=== PATIENT | female | born 1995 | race Caucasian/White ===

== ENCOUNTER 2016-10-24 23:15 | Emergency (ER) | payer MEDICAID ==
[2016-10-24 23:34] VITALS: RESP 16; TEMP 98.2; O2SAT 97
[2016-10-25 00:28] LABS: COLOR YELLOW; LEUKOCYTE ESTERASE,URINE NEGATIVE (NEGATIVE); NITRITE,URINE NEGATIVE (NEGATIVE)
[2016-10-25] MEDS ORDERED: KETOROLAC 30 MG/1 ML SDV IVP ONE (01:06)
--- NOTE | 2016-10-25 01:10 | EDPHY ---
H & P Stated Complaint: LLQ abd pain Time Seen by Provider: 10/25/16 00:50 HPI/ROS: HPI The patient presents with left lower quadrant pain which began at about 9:00 p.m. tonight while she was at home standing. The pain became gradually worse and now is described as a sharp, constant sensation which does not radiate. It is moderate in severity. She has a history of a similar pain about 1 year ago that improved on its own. Her last menstrual period was 1 week ago. She does not have any vaginal bleeding or discharge. She feels somewhat lightheaded though denies any other complaints.. REVIEW OF SYSTEMS Constitutional: No fever, no chills. Eyes: No discharge. ENT: No sore throat. Cardiovascular: No chest pain, no palpitations. Respiratory: No cough, no shortness of breath. Gastrointestinal: See HPI Genitourinary: No hematuria. Musculoskeletal: No back pain. Skin: No rashes. Neurological: No headache. PMHx: Bipolar disorder, asthma Soc Hx: Lives at home with her family PHYSICAL General Appearance: Alert, no distress Eyes: Pupils equal and round no pallor or injection ENT, Mouth: Mucous membranes moist Respiratory: There are no retractions, lungs are clear to auscultation Cardiovascular: Regular rate and rhythm Gastrointestinal: Abdomen is soft with tenderness in the left lower quadrant without any rebound or guarding,, no masses, bowel sounds normal Neurological: A&O, moves all extremities Skin: Warm and dry, no rashes Musculoskeletal: Neck is supple non tender Extremities: symmetrical, full range of motion Psychiatric: Patient is oriented X 3, there is no agitation Source: Patient Exam Limitations: No limitations - Personal History LMP (Females 10-55): 1-7 Days Ago Current Tetanus/Diphtheria Vaccine: Yes Current Tetanus Diphtheria and Acellular Pertussis (TDAP): Yes Tetanus Vaccine Date: < 10 years - Medical/Surgical History Hx Asthma: Yes Hx Chronic Respiratory Disease: No Hx Diabetes: No Hx Cardiac Disease: No Hx Renal Disease: No Hx Cirrhosis: No Hx Alcoholism: No Hx HIV/AIDS: No Hx Splenectomy or Spleen Trauma: No Other PMH: Bipolar/depression, asthma, PTSD - Social History Smoking Status: Never smoked Constitutional: Initial Vital Signs Temperature (C) 36.8 C 10/24/16 23:31 Heart Rate 100 10/24/16 23:31 Respiratory Rate 16 10/24/16 23:31 Blood Pressure 129/86 H 10/24/16 23:31 O2 Sat (%) 97 10/24/16 23:31 O2 Delivery Mode Room Air Allergies/Adverse Reactions: No Known Allergies Allergy (Verified 10/27/15 23:14) Home Medications: Medication Instructions Recorded traZODone [traZODONE 100MG (RX)] 11/04/12 Albuterol Sulfate [Albuterol 1 gm IH Q4 01/27/14 Sulfate Hfa] Control Pill 01/27/14 Flovent 110 MCG Hfa MDI (RX) 10/26/15 Latuda 10/24/16 Lexapro 10/24/16 Vyvanse 10/24/16 Medical Decision Making - Diagnostics Imaging Results: Pelvic ultrasound is normal, discussed with Dr. Strauss of Radiology Differential Diagnosis: This is a 21-year-old female with history of asthma, bipolar disorder who presents from home with left lower quadrant abdominal pain which has been constant since 9:00 p.m. tonight. Differential diagnosis includes ruptured ovarian cyst, ovarian torsion, UTI, less likely diverticulitis, musculoskeletal pain. Plan for pain control, basic labs. Patient's pain improved while in the emergency room. Labs were checked and were unremarkable. Her pelvic ultrasound was also unremarkable. I am not concerned about any serious intra-abdominal pathology at this time. The patient will be discharged, we have discussed return precautions. - Data Points Laboratory Results: Laboratory Results 10/24/16 00:50 10/24/16 00:50 10/24/16 10/24/16 10/24/16 23:40 00:50 00:50 WBC RBC Hgb Hct MCV MCH MCHC RDW Plt Count MPV Neut % (Auto) Lymph % (Auto) [place] % (Auto) Eos % (Auto) Baso % (Auto) Nucleat RBC Rel Count Absolute Neuts (auto) Absolute Lymphs (auto) Absolute Monos (auto) Absolute Eos (auto) Absolute Basos (auto) Absolute Nucleated RBC Immature Gran % Immature Gran # Sodium 138 mEq/L mEq/L (134-144) Potassium 4.0 mEq/L mEq/L (3.5-5.2) Chloride 105 mEq/L mEq/L (97-110) Carbon Dioxide 21 mEq/l L mEq/l (22-31) Anion Gap 12 mEq/L mEq/L (8-16) BUN 10 mg/dL mg/dL (7-23) Creatinine 0.6 mg/dL mg/dL (0.6-1.0) Estimated GFR > 60 Glucose 88 mg/dL mg/dL (70-100) Calcium 10.7 mg/dL H mg/dL (8.5-10.4) Phosphorus 4.2 mg/dL mg/dL (2.5-4.5) Beta HCG, Qual NEGATIVE Urine Color YELLOW Urine Appearance HAZY Urine pH 7.0 (5.0-7.5) Ur Specific Walker 1.023 (1.002-1.030) Urine Protein NEGATIVE (NEGATIVE) Urine Ketones NEGATIVE (NEGATIVE) Urine Blood NEGATIVE (NEGATIVE) Urine Nitrate NEGATIVE (NEGATIVE) Urine Bilirubin NEGATIVE (NEGATIVE) Urine Urobilinogen NEGATIVE EU EU (0.2-1.0) Ur Leukocyte Esterase NEGATIVE (NEGATIVE) Urine Glucose NEGATIVE (NEGATIVE) 10/24/16 00:50 WBC 8.74 10^3/uL 10^3/uL (3.80-9.50) RBC 4.68 10^6/uL 10^6/uL (4.18-5.33) Hgb 13.9 g/dL g/dL (12.6-16.3) Hct 41.1 % % (38.0-47.0) MCV 87.8 fL fL (81.5-99.8) MCH 29.7 pg pg (27.9-34.1) MCHC 33.8 g/dL g/dL (32.4-36.7) RDW 12.8 % % (11.5-15.2) Plt Count 303 10^3/uL 10^3/uL (150-400) MPV 9.8 fL fL (8.7-11.7) Neut % (Auto) 44.5 % % (39.3-74.2) Lymph % (Auto) 41.8 % % (15.0-45.0) [place] % (Auto) 8.9 % % (4.5-13.0) Eos % (Auto) 3.5 % % (0.6-7.6) Baso % (Auto) 0.6 % % (0.3-1.7) Nucleat RBC Rel Count 0.0 % % (0.0-0.2) Absolute Neuts (auto) 3.89 10^3/uL 10^3/uL (1.70-6.50) Absolute Lymphs (auto) 3.65 10^3/uL H 10^3/uL (1.00-3.00) Absolute Monos (auto) 0.78 10^3/uL 10^3/uL (0.30-0.80) Absolute Eos (auto) 0.31 10^3/uL 10^3/uL (0.03-0.40) Absolute Basos (auto) 0.05 10^3/uL 10^3/uL (0.02-0.10) Absolute Nucleated RBC 0.00 10^3/uL 10^3/uL (0-0.01) Immature Gran % 0.7 % % (0.0-1.1) Immature Gran # 0.06 10^3/uL 10^3/uL (0.00-0.10) Sodium Potassium Chloride Carbon Dioxide Anion Gap BUN Creatinine Estimated GFR Glucose Calcium Phosphorus Beta HCG, Qual Urine Color Urine Appearance Urine pH Ur Specific Walker Urine Protein Urine Ketones Urine Blood Urine Nitrate Urine Bilirubin Urine Urobilinogen Ur Leukocyte Esterase Urine Glucose Medications Given: Discontinued Medications Ketorolac Tromethamine (Toradol) 15 mg IVP EDNOW ONE Stop: 10/25/16 01:07 Last Admin: 10/25/16 01:15 Dose: 15 mg Departure - Departure Disposition: Home, Routine, Self-Care Clinical Impression: Abdominal pain Qualifiers: Abdominal location: left lower quadrant Qualified Code(s): R10.32 - Left lower quadrant pain Condition: Good Instructions: Acute Abdominal Pain (ED) Additional Instructions: Please return to the emergency room if your worse in any way. You can take Tylenol or ibuprofen as needed for pain. Referrals: Shaye Hall MD [Primary Care Provider] - As per Instructions
[2016-10-25 01:14] LABS: % IMMATURE GRANULYOCYTES 0.7 % (0.0-1.1); ABSOLUTE IMMATURE GRANULOCYTES 0.06 10^3/uL (0.00-0.10); ADD DIFF? NO; ADD MORPH? NO; ADD SCAN? NO; ATYPICAL LYMPHOCYTE FLAG 20 (0-99); FRAGMENT RBC FLAG 0 (0-99); HEMATOCRIT 41.1 % (38.0-47.0); HEMOGLOBIN 13.9 g/dL (12.6-16.3); LEFT SHIFT FLG 0 (0-99); LIPEMIA HEMOLYSIS FLAG 90 (0-99); MEAN CELL HEMOGLOBIN 29.7 pg (27.9-34.1); MEAN CELL HEMOGLOBIN CONCENTR. 33.8 g/dL (32.4-36.7); MEAN CELL VOLUME 87.8 fL (81.5-99.8); MEAN PLATELET VOLUME 9.8 fL (8.7-11.7); PLATELET CLUMPS FLAG 0 (0-99); PLATELET COUNT 303 10^3/uL (150-400); RED BLOOD CELL COUNT 4.68 10^6/uL (4.18-5.33); RED CELL DISTRIBUTION WIDTH 12.8 % (11.5-15.2)
[2016-10-25 01:40] LABS: ANION GAP 12 mEq/L (8-16); CARBON DIOXIDE 21 mEq/l (22-31); CHLORIDE 105 mEq/L (97-110); CREATININE 0.6 mg/dL (0.6-1.0); GLOMERULAR FILTRATION RATE > 60; GLUCOSE 88 mg/dL (70-100); SODIUM 138 mEq/L (134-144)
[2016-10-25 02:03] LABS: CALCIUM 10.7 mg/dL (8.5-10.4)
[2016-10-25 02:07] VITALS: BP 126/55; PULSE 71
== END 2016-10-25 02:07 | disposition home or self-care (01) ==
DX: R10.32 Left lower quadrant pain (principal); J45.909 Unspecified asthma, uncomplicated
CPT/HCPCS: 96374; J1885

== ENCOUNTER 2017-01-05 19:20 | Emergency (ER) | payer MEDICAID ==
[2017-01-05] MEDS ORDERED: NS 1,000 ML IV ONE ×2 (19:40→20:44)
--- NOTE | 2017-01-05 19:43 | EDPHY ---
H & P Smoking Status: Never smoked Time Seen by Provider: 01/05/17 19:29 HPI/ROS: 103AM: Patient has been evaluated by mental health. All him with P. Patient contracts for safety she is not suicidal. She has good follow-up plan in place. She has, cooperative. She does understand return emergency room immediately if she develops suicidal ideation or thoughts of wanting to harm herself or anybody else. (Jozef Braun) CHIEF COMPLAINT: Near syncope, almost passed out HISTORY OF PRESENT ILLNESS: This 21-year-old woman presents the emergency department for episodes of almost fainting this afternoon. 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 No unusual things at work but around 6:15 p.m. showed feeling lightheaded and dizzy. She put her head down and bent over the counter but continued to have symptoms. After 4 episodes she presents to the ED for evaluation. No recent vomiting or diarrhea or other illnesses. Normal oral intake today. No actual syncope today. No chest pain or shortness of breath. No leg swelling or recent travel or immobilization. No vertigo or dizziness or being off balance. REVIEW OF SYSTEMS: Eye: no change in vision ENT: no sore throat Cardiac: HPI Pulmonary: no cough or SOB Abdomen: no vomiting, diarrhea, abdominal pain Musculoskeletal: no back pain Skin: no rash Neuro: no headache Constitutional: no fever : no urinary symptoms A comprehensive 10 point review of systems is otherwise negative aside from elements mentioned in the history of present illness. PAST MEDICAL HISTORY: Includes bipolar, asthma, PTSD. Social history: No alcohol, here with fiancee General Appearance: Alert and conversant, cooperative. Eyes: No scleral icterus. ENT, Mouth: Normal mucous membranes. Respiratory: Normal respiratory effort, breath sounds equal, lungs are clear to auscultation. Cardiovascular: Regular rate and rhythm. No murmur. Heart rate just over 100. Gastrointestinal: Abdomen is soft and non tender. Neurological: Alert and oriented x3. Normally conversant. Face symmetric, normal movement and sensation in all extremities. Skin: Warm and dry, no rashes. Musculoskeletal: No peripheral edema and no joint swelling. No calf tenderness. Psychiatric: Not agitated. Denies suicidal ideation tonight. Emergency Department course/MDM: Temperature 37.1degrees at the time of my evaluation. No chest pain or shortness of breath. No risk factors for DVT or PE and no physical exam evidence of venous thromboembolism. Plan for EKG, IV fluid infusion, labs to include test and CBC. 2044: The mother's partner and the patient requesting CT of her head to see if there is "something neurologic" going on. She does have a normal neurologic examination and no headache. My suspicion for ASSEMBLER infection is low. She also has had increased anger and 2 nights ago she was walking down the middle of the road saying that she has thoughts of being run over and had to later be restrained from jumping off a balcony. Denies suicidal ideation right now but I think mental health evaluation would be appropriate. 2117: The toxicology screen positive for amphetamines but the patient is on Vyvanse. Negative Tylenol and aspirin. Negative ethanol. Urinalysis appears contaminant but not acute UTI. Signed out to Dr. Gilliam with plan for psychiatric evaluation. (Daron Melvin) Constitutional: Initial Vital Signs Heart Rate 107 H 01/05/17 19:22 Respiratory Rate 16 01/05/17 19:22 Blood Pressure 129/89 H 01/05/17 19:22 O2 Sat (%) 96 01/05/17 19:22 O2 Delivery Mode Room Air Allergies/Adverse Reactions: No Known Allergies Allergy (Verified 01/05/17 19:25) Home Medications: Medication Instructions Recorded traZODone [traZODONE 100MG (RX)] 11/04/12 Albuterol Sulfate [Albuterol 1 gm IH Q4 01/27/14 Sulfate Hfa] Control Pill 01/27/14 Flovent 110 MCG Hfa MDI (RX) 10/26/15 Latuda 10/24/16 Lexapro 10/24/16 Vyvanse 10/24/16 Medical Decision Making - Diagnostics EKG Interpretation: 12-lead EKG interpreted by me; official reading is in trace master. My interpretation is sinus rhythm rate 93, otherwise normal. (Daron Melvin) Imaging Results: Imaging Impressions Head CT 01/05/17 20:51 Impression: 1. No significant intracranial abnormality seen. If symptoms worsen, additional imaging may be necessary. These findings were discussed by telephone with Dr. Hernandez Gilliam 21:49 hour , 01/05/2017. ED Course/Re-evaluation: I took over care of this patient at 9:30 p.m.. The patient is waiting a psychiatric evaluation. The patient is here for PTSD, anxiety and depression related issues. According to family she was making suicidal get years few nights ago. She denies being suicidal at this time. CT head without contrast: Negative. Results were discussed with staff radiologist Dr. Richard Armstrong. 11:00 p.m., patient still awaiting behavioral health evaluation. This should occur shortly. Care turned over to Dr. Jozef Braun at 11:00 p.m.. ( Peter Gilliam) Differential Diagnosis: Differential diagnosis considered for near syncope including but not limited to , PE, vasovagal syncope, arrhythmia, dehydration, and blood loss. (Daron Melvin) - Data Points Laboratory Results: Laboratory Results 01/05/17 19:50 01/05/17 19:50 01/05/17 01/05/17 01/05/17 19:50 19:50 19:50 WBC RBC Hgb Hct MCV MCH MCHC RDW Plt Count MPV Neut % (Auto) Lymph % (Auto) [place] % (Auto) Eos % (Auto) Baso % (Auto) Nucleat RBC Rel Count Absolute Neuts (auto) Absolute Lymphs (auto) Absolute Monos (auto) Absolute Eos (auto) Absolute Basos (auto) Absolute Nucleated RBC Immature Gran % Immature Gran # Sodium Potassium Chloride Carbon Dioxide Anion Gap BUN Creatinine Estimated GFR Glucose Calcium Beta HCG, Qual NEGATIVE Urine RBC 3-5 /hpf H /hpf (0-3) Urine WBC 1-3 /hpf /hpf (0-3) Ur Epithelial Cells TRACE /lpf /lpf (NONE-1+) Urine Bacteria TRACE /hpf H /hpf (NONE SEEN) Urine Mucus 3+ /lpf H /lpf (NONE-1+) Salicylates < 1.0 mg/dL L mg/dL (2.0-20.0) Urine Opiates Screen NEGATIVE (NEGATIVE) Acetaminophen < 10 mcg/mL L mcg/mL (10-30) Urine Barbiturates NEGATIVE (NEGATIVE) Ur Phencyclidine Scrn NEGATIVE (NEGATIVE) Ur Amphetamine Screen NON-NEGATIVE H (NEGATIVE) U Benzodiazepines Scrn NEGATIVE (NEGATIVE) Urine Cocaine Screen NEGATIVE (NEGATIVE) U Marijuana (THC) Screen NEGATIVE (NEGATIVE) Ethyl Alcohol < 10 mg/dL mg/dL (0-10) 01/05/17 01/05/17 19:50 19:50 WBC 8.38 10^3/uL 10^3/uL (3.80-9.50) RBC 4.64 10^6/uL 10^6/uL (4.18-5.33) Hgb 13.7 g/dL g/dL (12.6-16.3) Hct 40.6 % % (38.0-47.0) MCV 87.5 fL fL (81.5-99.8) MCH 29.5 pg pg (27.9-34.1) MCHC 33.7 g/dL g/dL (32.4-36.7) RDW 12.6 % % (11.5-15.2) Plt Count 321 10^3/uL 10^3/uL (150-400) MPV 9.8 fL fL (8.7-11.7) Neut % (Auto) 53.9 % % (39.3-74.2) Lymph % (Auto) 35.6 % % (15.0-45.0) [place] % (Auto) 8.1 % % (4.5-13.0) Eos % (Auto) 1.4 % % (0.6-7.6) Baso % (Auto) 0.4 % % (0.3-1.7) Nucleat RBC Rel Count 0.0 % % (0.0-0.2) Absolute Neuts (auto) 4.52 10^3/uL 10^3/uL (1.70-6.50) Absolute Lymphs (auto) 2.98 10^3/uL 10^3/uL (1.00-3.00) Absolute Monos (auto) 0.68 10^3/uL 10^3/uL (0.30-0.80) Absolute Eos (auto) 0.12 10^3/uL 10^3/uL (0.03-0.40) Absolute Basos (auto) 0.03 10^3/uL 10^3/uL (0.02-0.10) Absolute Nucleated RBC 0.00 10^3/uL 10^3/uL (0-0.01) Immature Gran % 0.6 % % (0.0-1.1) Immature Gran # 0.05 10^3/uL 10^3/uL (0.00-0.10) Sodium 138 mEq/L mEq/L (134-144) Potassium 3.8 mEq/L mEq/L (3.5-5.2) Chloride 104 mEq/L mEq/L (97-110) Carbon Dioxide 20 mEq/l L mEq/l (22-31) Anion Gap 14 mEq/L mEq/L (8-16) BUN 7 mg/dL mg/dL (7-23) Creatinine 0.7 mg/dL mg/dL (0.6-1.0) Estimated GFR > 60 Glucose 82 mg/dL mg/dL (70-100) Calcium 10.1 mg/dL mg/dL (8.5-10.4) Beta HCG, Qual Urine RBC Urine WBC Ur Epithelial Cells Urine Bacteria Urine Mucus Salicylates Urine Opiates Screen Acetaminophen Urine Barbiturates Ur Phencyclidine Scrn Ur Amphetamine Screen U Benzodiazepines Scrn Urine Cocaine Screen U Marijuana (THC) Screen Ethyl Alcohol Medications Given: Discontinued Medications Sodium Chloride (Ns) 1,000 mls @ 0 mls/hr IV EDNOW ONE; Wide Open PRN Reason: Protocol Stop: 01/05/17 19:41 Last Admin: 01/05/17 20:00 Dose: 1,000 mls Sodium Chloride (Ns) 1,000 mls @ 0 mls/hr IV ONCE ONE PRN Reason: Wide Open Stop: 01/05/17 20:45 Last Admin: 01/05/17 20:45 Dose: 1,000 mls Departure - Departure Disposition: Home, Routine, Self-Care Clinical Impression: Near syncope, Anger reaction Condition: Good Instructions: Near Syncope (ED) Additional Instructions: 1. Return emergency room immediately if feels suicidal. 2. Please follow up with resources you were given in the emergency room by mental health. Referrals: Shaye Hall MD [Primary Care Provider] - As per Instructions
--- NOTE | 2017-01-05 19:44 | CPEKG ---
Heart Rate: 93 RR Interval: 645 P-R Interval: 140 QRSD Interval: 84 QT Interval: 348 QTC Interval: 433 P Rogers: 41 QRS Rogers: 69 T Wave Rogers: 36 EKG Severity - NORMAL ECG - EKG Impression: SINUS RHYTHM Electronically Signed By: Daron Melvin 05-Jan-2017 19:56:04
[2017-01-05 20:00] LABS: % IMMATURE GRANULYOCYTES 0.6 % (0.0-1.1); ABSOLUTE IMMATURE GRANULOCYTES 0.05 10^3/uL (0.00-0.10); ADD DIFF? NO; ADD MORPH? NO; ADD SCAN? NO; ATYPICAL LYMPHOCYTE FLAG 30 (0-99); FRAGMENT RBC FLAG 0 (0-99); HEMATOCRIT 40.6 % (38.0-47.0); HEMOGLOBIN 13.7 g/dL (12.6-16.3); LEFT SHIFT FLG 0 (0-99); LIPEMIA HEMOLYSIS FLAG 80 (0-99); MEAN CELL HEMOGLOBIN 29.5 pg (27.9-34.1); MEAN CELL HEMOGLOBIN CONCENTR. 33.7 g/dL (32.4-36.7); MEAN CELL VOLUME 87.5 fL (81.5-99.8); MEAN PLATELET VOLUME 9.8 fL (8.7-11.7); PLATELET CLUMPS FLAG 0 (0-99); PLATELET COUNT 321 10^3/uL (150-400); RED BLOOD CELL COUNT 4.64 10^6/uL (4.18-5.33); RED CELL DISTRIBUTION WIDTH 12.6 % (11.5-15.2)
[2017-01-05 20:28] LABS: ANION GAP 14 mEq/L (8-16); CALCIUM 10.1 mg/dL (8.5-10.4); CARBON DIOXIDE 20 mEq/l (22-31); CHLORIDE 104 mEq/L (97-110); CREATININE 0.7 mg/dL (0.6-1.0); GLOMERULAR FILTRATION RATE > 60; GLUCOSE 82 mg/dL (70-100); POTASSIUM 3.8 mEq/L (3.5-5.2); SODIUM 138 mEq/L (134-144)
[2017-01-05 21:05] LABS: ETHANOL SERUM < 10 mg/dL (0-10); SALICYLATE < 1.0 mg/dL (2.0-20.0)
[2017-01-05 21:20] LABS: BACTERIA TRACE /hpf (NONE SEEN); MUCUS 3+ /lpf (NONE-1+)
[2017-01-06 01:29] VITALS: BP 116/91; PULSE 81; RESP 16; TEMP 97.9; O2SAT 98
== END 2017-01-06 01:28 | disposition home or self-care (01) ==
DX: R55 Syncope and collapse (principal); R45.4 Irritability and anger; E86.9 Volume depletion, unspecified; J45.909 Unspecified asthma, uncomplicated
CPT/HCPCS: 80305; G0480

== ENCOUNTER → 2017-03-22 | Outpatient (CLI) | payer MEDICAID | LOC: FIMAGING 07:37 | PROVIDERS: ATTEND Psychiatry & Neurology Neurology | DX: R29.898 Other symptoms and signs involving the musculoskeletal system (principal); M79.606 Pain in leg, unspecified ==

== ENCOUNTER 2018-06-23 06:43 | Emergency (ER) | payer MEDICAID ==
--- NOTE | 2018-06-23 06:50 | EDPHY ---
H & P Time Seen by Provider: 06/23/18 06:49 HPI/ROS: CHIEF COMPLAINT: Abdominal pain HISTORY OF PRESENT ILLNESS: Patient had a little bit of soreness yesterday and used [place] balm. She woke up at 2:00 a.m. With relatively severe right-sided abdominal pain which radiates to the back. A little bit worse with lying down and better standing up. Not associated with cough shortness of breath or hemoptysis or leg swelling. No urinary symptoms and no vaginal bleeding, no injury or trauma and no skin rash. No fever or chills. REVIEW OF SYSTEMS: Eye: no change in vision ENT: no sore throat Cardiac: no chest pain or syncope Pulmonary: no cough or SOB Abdomen: HPI Musculoskeletal: Radiates to the back Skin: no rash Neuro: no headache Constitutional: no fever : no urinary symptoms A comprehensive 10 point review of systems is otherwise negative aside from elements mentioned in the history of present illness. PAST MEDICAL HISTORY: Includes asthma, PTSD, bipolar disorder Family history: Mother had cholecystectomy, negative for venous thromboembolism. Social history: Nonsmoker. No recent immobilization or surgery or travel. General Appearance: Alert and conversant, cooperative. Eyes: No scleral icterus. ENT, Mouth: Normal mucous membranes. Respiratory: Normal respiratory effort, breath sounds equal, lungs are clear to auscultation. Speaks in full sentences. Cardiovascular: Regular rate and rhythm. Gastrointestinal: Right upper quadrant and right lower quadrant tenderness to palpation, worse in the right upper quadrant. No guarding. Neurological: Alert, face symmetric, normal motor and sensory in extremities. Skin: Warm and dry, no rashes. No zoster. Musculoskeletal: No peripheral edema. Psychiatric: Not agitated. Emergency Department course/MDM: Vital signs reviewed afebrile but tachycardic heart rate 104, normal O2 sat. Fentanyl 100, Phenergan 12.5, ultrasound to include gallbladder appendix and ovary on the right side. Labs to include test LFT and lipase. I think renal colic would be unlikely as she is tender to palpation and has no urinary symptoms and the pain is primarily anterior. Pulmonary embolism considered I think it would be unlikely as she has no respiratory symptoms and normal saturation, abdominal tenderness including her right lower quadrant. 829: Labs reviewed include normal WBC, alk-phos 129, CO2 21, urine normal except for high specific gravity. negative. Isuani: ultrasound shows RUQ normal, appendix not visualized, pelvis normal, no cyst or fluid. Patient examined at this time, she says that her pain essentially is gone. Examination at this time shows no rebound or guarding and no tenderness to palpation at this time. Toradol 15 mg IV, will observe for another 30 min. Emphasized to the patient that do not have a definitive diagnosis but I think that acute medical or surgical emergent condition is unlikely at this time. Warned of the not likely but not completely excluded possibility of early appendicitis and she will return if needed as noted in precautions in the [facility]. Smoking Status: Never smoked Constitutional: Initial Vital Signs Temperature (C) 36.3 C 06/23/18 06:46 Heart Rate 104 H 06/23/18 06:46 Respiratory Rate 18 06/23/18 06:46 Blood Pressure 144/87 H 06/23/18 06:46 O2 Sat (%) 95 06/23/18 06:46 O2 Delivery Mode Room Air Allergies/Adverse Reactions: No Known Allergies Allergy (Verified 06/23/18 06:46) Home Medications: Medication Instructions Recorded traZODone [traZODONE 100MG (RX)] 11/04/12 Albuterol Sulfate [Albuterol 1 gm IH Q4 01/27/14 Sulfate Hfa] Control Pill 01/27/14 Flovent 110 MCG Hfa MDI (RX) 10/26/15 Lexapro 10/24/16 Vyvanse 10/24/16 Penicillin V Potassium 500 mg PO BID #20 tablet 11/28/17 Medical Decision Making - Diagnostics Imaging Results: Imaging Impressions Abdomen Ultrasound 06/23/18 07:03 Impression: 1. Appendix not identified. 2. Mild hepatic steatosis. 3. No cholelithiasis or biliary ductal dilation. 4. No right hydronephrosis. Findings and recommendations discussed with Emergency Department physician, Eitan Bruce, at 8:33 a.m. on 06/23/2018. Final report concurs with initial preliminary interpretation. Pelvic/Renal Ultrasound 06/23/18 07:03 Impression: Normal ultrasound pelvis. Findings and recommendations discussed with Emergency Department physician, EITAN BRUCE at 8:34 hour, 06/23/2018. Final report concurs with initial preliminary interpretation. Imaging: Discussed imaging studies w/ hydraulic plumber helper Radiologist Differential Diagnosis: Considered including but not limited to cholecystitis, pancreatitis, renal colic , appendicitis, ovarian cyst, ectopic , pulmonary embolism - Data Points Laboratory Results: Laboratory Results 06/23/18 07:30 06/23/18 07:30 06/23/18 06/23/18 06/23/18 07:30 07:30 07:30 WBC 9.17 10^3/uL 10^3/uL (3.80-9.50) RBC 4.47 10^6/uL 10^6/uL (4.18-5.33) Hgb 13.2 g/dL g/dL (12.6-16.3) Hct 39.0 % % (38.0-47.0) MCV 87.2 fL fL (81.5-99.8) MCH 29.5 pg pg (27.9-34.1) MCHC 33.8 g/dL g/dL (32.4-36.7) RDW 13.3 % % (11.5-15.2) Plt Count 307 10^3/uL 10^3/uL (150-400) MPV 9.6 fL fL (8.7-11.7) Neut % (Auto) 49.2 % % (39.3-74.2) Lymph % (Auto) 36.0 % % (15.0-45.0) Clinch % (Auto) 9.1 % % (4.5-13.0) Eos % (Auto) 4.1 % % (0.6-7.6) Baso % (Auto) 0.4 % % (0.3-1.7) Nucleat RBC Rel Count 0.0 % % (0.0-0.2) Absolute Neuts (auto) 4.51 10^3/uL 10^3/uL (1.70-6.50) Absolute Lymphs (auto) 3.30 10^3/uL H 10^3/uL (1.00-3.00) Absolute Monos (auto) 0.83 10^3/uL H 10^3/uL (0.30-0.80) Absolute Eos (auto) 0.38 10^3/uL 10^3/uL (0.03-0.40) Absolute Basos (auto) 0.04 10^3/uL 10^3/uL (0.02-0.10) Absolute Nucleated RBC 0.00 10^3/uL 10^3/uL (0-0.01) Immature Gran % 1.2 % H % (0.0-1.1) Immature Gran # 0.11 10^3/uL H 10^3/uL (0.00-0.10) Sodium 137 mEq/L mEq/L (135-145) Potassium 3.5 mEq/L mEq/L (3.5-5.2) Chloride 107 mEq/L mEq/L (97-110) Carbon Dioxide 21 mEq/l L mEq/l (22-31) Anion Gap 9 mEq/L mEq/L (6-14) BUN 16 mg/dL mg/dL (7-23) Creatinine 0.6 mg/dL mg/dL (0.6-1.0) Estimated GFR > 60 Glucose 112 mg/dL H mg/dL (70-100) Calcium 9.9 mg/dL mg/dL (8.5-10.4) Total Bilirubin 0.6 mg/dL mg/dL (0.1-1.4) Conjugated Bilirubin 0.2 mg/dL mg/dL (0.0-0.5) Unconjugated Bilirubin 0.4 mg/dL mg/dL (0.0-1.1) AST 24 IU/L IU/L (14-46) ALT 34 IU/L IU/L (9-52) Alkaline Phosphatase 129 IU/L H IU/L (38-126) Total Protein 7.7 g/dL g/dL (6.3-8.2) Albumin 4.3 g/dL g/dL (3.5-5.0) Lipase 119 IU/L IU/L (23-300) Beta HCG, Qual NEGATIVE Urine Color Urine Appearance Urine pH Ur Specific Henry Urine Protein Urine Ketones Urine Blood Urine Nitrate Urine Bilirubin Urine Urobilinogen Ur Leukocyte Esterase Urine Glucose 06/23/18 07:26 WBC RBC Hgb Hct MCV MCH MCHC RDW Plt Count MPV Neut % (Auto) Lymph % (Auto) Clinch % (Auto) Eos % (Auto) Baso % (Auto) Nucleat RBC Rel Count Absolute Neuts (auto) Absolute Lymphs (auto) Absolute Monos (auto) Absolute Eos (auto) Absolute Basos (auto) Absolute Nucleated RBC Immature Gran % Immature Gran # Sodium Potassium Chloride Carbon Dioxide Anion Gap BUN Creatinine Estimated GFR Glucose Calcium Total Bilirubin Conjugated Bilirubin Unconjugated Bilirubin AST ALT Alkaline Phosphatase Total Protein Albumin Lipase Beta HCG, Qual Urine Color YELLOW Urine Appearance HAZY Urine pH 5.0 (5.0-7.5) Ur Specific Henry > 1.035 H (1.002-1.030) Urine Protein NEGATIVE (NEGATIVE) Urine Ketones NEGATIVE (NEGATIVE) Urine Blood NEGATIVE (NEGATIVE) Urine Nitrate NEGATIVE (NEGATIVE) Urine Bilirubin NEGATIVE (NEGATIVE) Urine Urobilinogen NEGATIVE EU EU (0.2-1.0) Ur Leukocyte Esterase NEGATIVE (NEGATIVE) Urine Glucose NEGATIVE (NEGATIVE) Medications Given: Discontinued Medications Fentanyl (Sublimaze) 100 mcg IVP EDNOW ONE Stop: 06/23/18 07:04 Last Admin: 06/23/18 07:35 Dose: 100 mcg Sodium Chloride (Ns) 1,000 mls @ 0 mls/hr IV EDNOW ONE; Wide Open PRN Reason: Protocol Stop: 06/23/18 07:04 Last Admin: 06/23/18 07:34 Dose: 1,000 mls Ketorolac Tromethamine (Toradol) 15 mg IVP EDNOW ONE Stop: 06/23/18 08:36 Last Admin: 06/23/18 08:42 Dose: 15 mg Promethazine HCl (Phenergan) 12.5 mg IVP EDNOW ONE Stop: 06/23/18 07:05 Last Admin: 06/23/18 07:34 Dose: 12.5 mg Departure - Departure Disposition: Home, Routine, Self-Care Clinical Impression: Abdominal pain Qualifiers: Abdominal location: right upper quadrant Qualified Code(s): R10.11 - Right upper quadrant pain Condition: Good Instructions: Acute Abdominal Pain (ED) Additional Instructions: You need to return to the emergency department immediately if you develop worsening or severe pain, fever, vomiting or you are not completely better in 8- 12 hours. Referrals: Tyra Moss MD [Primary Care Provider] - As per Instructions
[2018-06-23] MEDS ORDERED: NS 1,000 ML IV ONE (07:03)
[2018-06-23] MEDS ORDERED: fentaNYL 100 MCG/2 ML INJ IVP ONE (07:03)
[2018-06-23] MEDS ORDERED: PROMETHAZINE HCL 25 MG/ML INJ IVP ONE (07:04)
[2018-06-23 07:39] LABS: PLATELET COUNT 307 10^3/uL (150-400)
[2018-06-23] MEDS ORDERED: KETOROLAC 15 MG/1 ML SDV IVP ONE (08:35)
[2018-06-23 08:43] VITALS: BP 104/54
== END 2018-06-23 09:02 | disposition home or self-care (01) ==
DX: R10.11 Right upper quadrant pain (principal); K76.0 Fatty (change of) liver, not elsewhere classified; E86.9 Volume depletion, unspecified
CPT/HCPCS: 96374; J1885; J2550; J3010